=== PATIENT | female | born 1975 | race Caucasian/White ===

== ENCOUNTER 2022-09-13 12:05 | Outpatient (CLI) | payer BC, SELFPAY | END 2022-09-13 12:06 | disposition home or self-care (01) | LOC: NFLDREF 09-14 17:17 | PROVIDERS: PCP Family Medicine; Referring Provider Family Medicine; Visit Provider Physician Assistant | DX: Z20.822 Contact with and (suspected) exposure to COVID-19 (principal); R06.2 Wheezing; R09.89 Other specified symptoms and signs involving the circulatory and respiratory systems; J45.901 Unspecified asthma with (acute) exacerbation | CPT/HCPCS: 87635 ==